=== PATIENT | male | born 1975 | race Caucasian/White ===

== ENCOUNTER 2020-01-19 01:27 | Emergency (ER) | payer MEDICAID, SELFPAY ==
[2020-01-19 01:36] VITALS: BP 173/129; PULSE 112; RESP 18; TEMP 36.6; O2SAT 98; BMI 22.4
--- NOTE | 2020-01-19 01:45 | CT_ITS ---
PROCEDURE: CT HEAD/BRAIN WO CON CLINICAL INDICATION: Seizures Headache with seizure activity COMPARISON: No exams were available for comparison TECHNIQUE: Axial images obtained. All CT scans at the facility use one or more dose reduction, viz: automated exposure control, ma/kV adjustment per patient size (including targeted exams where dose is matched to indication, i.e. head), or iterative reconstruction technique. FINDINGS: No midline shift, mass effect, intracranial hemorrhage, hydrocephalus, or extra-axial fluid collection is evident. The calvarium has an unremarkable appearance. No mastoid effusion. No sinus air-fluid level. IMPRESSION: No acute intracranial finding Dictated by: Brenton Ramirez MD 01/19/2020 06:19 Electronically signed by Brenton Ramirez MD in [place] 01/19/2020 06:19
[2020-01-19 01:47] VITALS: BP 142/98
[2020-01-19 01:51] LABS: Microscopic, Urine URINE MICROSCOPIC (MICROSCOPIC)
[2020-01-19 01:53] VITALS: BP 138/99; PULSE 102; RESP 16; O2SAT 100
[2020-01-19 01:54] LABS: Appearance,Urine CLEAR (Clear); Bilirubin,Urine Negative (Negative); Blood, Urine Negative (Negative); Color,Urine YELLOW (Yellow); Glucose,Urine (UA) Negative (Negative); Ketones,Urine Negative (Negative); Leukocyte Esterase,Urine Negative (Negative); Nitrate,Urine Negative (Negative); Protein,Urine Negative (Negative); Specific Gravity, Urine <= 1.005 (1.005-1.030); Urobilinogen,Urine 0.2 EU/dl (0.2)
[2020-01-19 01:57] LABS: Basophils # 0.1 K/mm3 (0-0.2); Eosinophils # 0.4 K/mm3 (0.0-0.4); Eosinophils % 3.3 % (0.1-12.0); Hematocrit 47.6 % (42.0-52.0); Hemoglobin 15.6 g/dL (14.1-18.0); Lymphocytes # 3.6 K/mm3 (0.7-4.5); Lymphocytes % 29.7 % (10-50); Mean Corpuscular HGB Conc 32.7 g/dL (31.8-35.4); Mean Corpuscular Hemoglobin 31.6 pg (27.0-31.2); Mean Corpuscular Volume 96.8 fl (80-94); Mean Platelet Volume 8.1 fl (7.4-10.4); Monocytes # 0.9 K/mm3 (0.1-1.0); Monocytes % 7.6 % (1.7-9.3); Neutrophils % 58.3 % (37.0-80.0); Platelet Count 292 K/mm3 (142-424); Red Blood Count 4.92 M/mm3 (4.60-6.20); Red Cell Distribution Width 12.3 % (11.5-17.5)
[2020-01-19 02:02] LABS: Alanine Aminotransferase 30 U/L (12-78); Albumin Level 4.4 g/dl (3.5-5.0); Albumin/Globulin Ratio 1.2 (1.1-1.8); Alkaline Phosphatase 138 U/L (38-126); Anion Gap 7.9 mEq/L (5-15); Aspartate Amino Transferase 32 U/L (17-59); Bilirubin,Total 0.2 mg/dl (0.2-1.3); Blood Urea Nitrogen 11 mg/dl (9-20); Calcium 9.5 mg/dl (8.4-10.2); Carbon Dioxide 30 mmol/L (22.0-30.0); Chloride 103 mmol/L (98-107); Creatinine Clearance Estimated 119 mL/min (50-200); Estimated Glomerular Filt Rate 92 ml/min (>60); GFR (African American) 111 ML/MIN (>60); Globulin 3.7 g/dL (1.3-3.2); Glucose 112 mg/dl (74-100); Potassium 3.9 mmoL/L (3.5-5.1); Sodium 137 mmol/L (136-145); Total Protein,Serum 8.1 g/dl (6.3-8.2)
[2020-01-19 02:07] LABS: C-Reactive Protein 50.1 mg/L (0-4)
[2020-01-19 02:11] LABS: Barbiturates Screen,Urine Negative ng/ml (<200)
[2020-01-19 02:12] LABS: Benzodiazepines Screen,Urine Negative ng/ml (<200)
[2020-01-19 02:14] LABS: Cannabinoid Screen,Urine Positive ng/ml (<50)
[2020-01-19 02:15] LABS: Cocaine Screen,Urine Negative ng/ml (<300); Methadone Screen,Urine Negative ng/ml (<300)
[2020-01-19 02:17] LABS: Opiate Screen,Urine Negative ng/ml (<300); Phencyclidine Screen,Urine Negative ng/ml (<25)
[2020-01-19 02:20] VITALS: BP 123/82; PULSE 110; RESP 16; O2SAT 100
[2020-01-19 02:38] LABS: Bacteria,Urine Trace /lpf; WBC,Urine Occasional #/hpf (0-3)
[2020-01-19 02:53] LABS: Erythrocyte Sedimentation Rate 46 mm/hr (0-15)
--- NOTE | 2020-01-19 03:37 | HMH.EDSEIZ ---
ED Disposition Clinical Impression: Generalized seizure Disposition: Home, Self-Care Condition on Discharge: Good Instructions: DI for Seizure Disorder -- Adult Additional Instructions: call neuro this am Referrals: Trish Srinivasan APRN [Primary Care Provider] - - Critical Care Critical Care Time: No Attestation: On 01/19/20, the high probability of a clinically significant, sudden or life threatening deterioration of the following system(s) required my full and direct attention, intervention and personal management. The time I documented below is in addition to time spent performing reported procedures but includes the following listed in this critical care notation. Medical Decision Making - Medical Records Medical records reviewed: Yes: I reviewed the patient's medical records. - Med Inquiry Pt receiving controlled substance: No Vital Signs: 01/19/20 01:36 01/19/20 01:47 01/19/20 01:53 Temperature 97.8 F Temperature Source Oral Pulse Rate [Right] 112 H 102 H Respiratory Rate 18 16 Blood Pressure [Right Arm] 173/129 H 142/98 H 138/99 H Blood Pressure Mean [Right Arm] 143 112 112 Blood Pressure Source [Right Arm] Automatic Cuff Manual Cuff/ Auscultation Blood Pressure Position [Right Arm] Supine Supine Supine 02 Sat by Pulse Oximetry 98 100 Oxygen Delivery Method Room Air Room Air 01/19/20 02:20 Temperature Temperature Source Pulse Rate [Right] 110 H Respiratory Rate 16 Blood Pressure [Right Arm] 123/82 Blood Pressure Mean [Right Arm] 95 Blood Pressure Source [Right Arm] Blood Pressure Position [Right Arm] 02 Sat by Pulse Oximetry 100 Oxygen Delivery Method Room Air - Lab Data Lab results reviewed: Yes: I reviewed the patient's lab results. Lab Results 01/19/20 01:33: Urine Color Yellow, Urine Appearance Clear, Urine pH 6.0, Ur Specific [place] <= 1.005, Urine Protein Negative, Urine Glucose (UA) Negative, Urine Ketones Negative, Urine Blood Negative, Urine Nitrate Negative, Urine Bilirubin Negative, Urine Urobilinogen 0.2, Ur Leukocyte Esterase Negative, Urine WBC Occasional, Urine Bacteria Trace 01/19/20 01:33: Urine Opiates Screen Negative, Urine Methadone Screen Negative, Ur Barbituates Screen Negative, Ur Phencyclidine Scrn Negative, Ur Amphetamines Screen Tv Host, U Benzodiazepines Scrn Negative, Urine Cocaine Screen Negative, U Marijuana (THC) Screen Positive H 01/19/20 01:43: WBC 12.0 H, RBC 4.92, Hgb 15.6, Hct 47.6, MCV 96.8 H, MCH 31.6 H, MCHC 32.7, RDW 12.3, Plt Count 292, MPV 8.1, Neut % (Auto) 58.3, Lymph % (Auto) 29.7, [place] % (Auto) 7.6, Eos % (Auto) 3.3, Baso % (Auto) 1.0, Neut # (Auto) 7.0, Lymph # (Auto) 3.6, [place] # (Auto) 0.9, Eos # (Auto) 0.4, Baso # (Auto) 0.1, ESR 46 H 01/19/20 01:43: Sodium 137, Potassium 3.9, Chloride 103, Carbon Dioxide 30, Anion Gap 7.9, BUN 11, Creatinine 0.90, Estimated Creat Clear 119, Estimated GFR 92, Est GFR ( Amer) 111, Glucose 112 H, Calcium 9.5, Total Bilirubin 0.2, AST 32, ALT 30, Alkaline Phosphatase 138 H, C-Reactive Protein 50.1 H, Total Protein 8.1, Albumin 4.4, Globulin 3.7 H, Albumin/Globulin Ratio 1.2 Result diagrams: 01/19/20 01:43 01/19/20 01:43 Orders (Tests/Meds): ED MEDICATIONS Generic Name Dose Route Start Last Admin Trade Name Freq PRN Reason Stop Dose Admin Sodium Chloride 1,000 mls @ 999 mls/hr 01/19/20 01:45 01/19/20 01:56 Sod Chlor 0.9% 1000ml Bag IV 01/19/20 02:45 999 mls/hr .Q1H1M TONEY Administration Discontinued Medications Generic Name Dose Route Start Last Admin Trade Name Freq PRN Reason Stop Dose Admin Clonidine HCl 0.1 mg 01/19/20 01:45 01/19/20 01:54 Clonidine 0.1mg Tablet PO 01/19/20 01:46 Not Given ONCE ONE ORDERS Category Date Time Status CT head/brain wo con Stat Cat Scan 01/19/20 01:45 Taken - CT Data CT Scan: Head Time Received: 03:[address] Reviewed: Yes: I have viewed the radiologist's interpretation Preliminary Findings: Normal/NA
[2020-01-19 03:59] VITALS: BP 137/89; PULSE 88; RESP 16; TEMP 36.6; O2SAT 98
[2020-01-21 17:40] LABS: Lamotrigine (Lamictal) None Detected ug/mL (2.0-20.0)
[2020-01-21 22:32] LABS: Amphetamine Positive (.); Amphetamines Positive (.); Methamphetamine Positive (.)
[2020-01-22 08:14] LABS: Amphetamine (GC/MS) 1150 ng/mL (Cutoff=500); Methamphetamine (GC/MS) 7860 ng/mL (Cutoff=500)
== END 2020-01-19 04:01 | disposition home or self-care (01) ==
PROVIDERS: Emergency Provider Emergency Medicine; PCP Nurse Practitioner
DX: G40.909 Epilepsy, unspecified, not intractable, without status epilepticus (principal)
CPT/HCPCS: 70450; 80053; 80168; 80305; 80324; 81001; 85025; 85651; 86140; 96365; 99284

== ENCOUNTER 2020-01-19 14:03 | Emergency (ER) | payer MEDICAID, SELFPAY ==
[2020-01-19 14:03] VITALS: BP 123/85; PULSE 87; RESP 20; TEMP 36.7; O2SAT 98; BMI 21.8
[2020-01-19 14:33] VITALS: BP 143/98; PULSE 68; RESP 20; O2SAT 98
--- NOTE | 2020-01-19 14:52 | HMH.EDGENADL ---
ED Disposition Clinical Impression: Epileptic seizure, Noncompliance by refusing intervention or support Disposition: Home, Self-Care Condition on Discharge: Good Instructions: DI for Seizure (Not Epilepsy/Seizure Disorder), DI for Seizure Disorder -- Adult, DI for Seizure Disorder -- Child Referrals: Provider,Referral, [Primary Care Provider] - - Critical Care Critical Care Time: No Attestation: On 01/19/20, the high probability of a clinically significant, sudden or life threatening deterioration of the following system(s) required my full and direct attention, intervention and personal management. The time I documented below is in addition to time spent performing reported procedures but includes the following listed in this critical care notation. Medical Decision Making - Medical Records Medical records reviewed: Yes: I reviewed the patient's medical records. - Med Inquiry Pt receiving controlled substance: No Vital Signs: 01/19/20 14:03 Temperature 98.1 F Temperature Source Oral Pulse Rate [Right] 87 Respiratory Rate 20 Blood Pressure [Right Arm] 123/85 Blood Pressure Mean [Right Arm] 97 02 Sat by Pulse Oximetry 98 - Lab Data Lab results reviewed: Yes: I reviewed the patient's lab results. Orders (Tests/Meds): ORDERS Category Date Time Status Upper Respiratory Panel, PCR Stat Lab 01/19/20 14:24 Ordered General Adult HPI - General Chief complaint: Seizure Stated complaint: Seizures Time Seen by Provider: 01/19/20 14:53 Mode of Arrival: EMS Source of Information: Patient Limitations: No Limitations Description of Symptoms (Recalled from ER Triage Doc. by RN): Seen here earlier today and dx with seizures and given medication and is back today for having another unwitnessed seizure. EMS did not witness a seizure and states he is not postictal. Denies any pain but c/o weakness. - History of Present Illness HPI narrative: 44-year-old male presents the ED with may be a seizure that was unwitnessed at home. Patient was just recently seen here in the ED earlier today diagnosed with an unwitnessed seizure and restarted back on his medication that he should have been taking but he is noncompliant with. Presently patient has no formal complaints he does state that he has minor has minor fatigue. I really told him that there is not much else to do except get the medication filled and start taking it however he decided not to get his prescription filled yet. Otherwise patient has no evidence of any trauma. Patient did not have a bowel or bladder incontinence during this unwitnessed possible seizure. Patient states that he does not have any recent shortness of breath, cough, or any other infectious type symptoms. - Related Data Home Medications Medication Instructions Recorded Confirmed hydrOXYzine HCL [Hydroxyzine HCl] 25 mg PO DAILY PRN 01/19/20 01/19/20 lamoTRIgine [Lamotrigine] 25 mg PO BID 01/19/20 01/19/20 Allergies Allergy/AdvReac Type Severity Reaction Status Date / Time No Known Allergies Allergy Unverified 09/02/17 15:33 [facility] History - Hepatitis A Screen Drug use history?: No High risk sexual behaviors?: No History of sexually transmitted infection?: No Currently employed?: No Childcare worker?: No Do you have indoor plumbing?: Yes Do you have electricity?: Yes Attestation statement:: This patient has been screened for Hepatitis A risk factors. I have reviewed the patient's past medical history: Yes Medical History: Denies:: Diabetes Mellitus Type 1, Diabetes Mellitus Type 2 - Social History Smoking Status: Current every day smoker Tobacco Type: cigarettes # Packs/Day (cigarettes): 1 Alcohol Intake: never Substance Use Type: marijuana Occupational Status: unemployed ROS Obtained: Yes All systems reviewed & no additional complaints - Constitutional Constitutional: Reports system reviewed and no additional complaints, except as docu -
[2020-01-19 15:06] VITALS: BP 158/90; PULSE 85; RESP 20; TEMP 36.8; O2SAT 98
[2020-01-19 16:03] LABS: Adenovirus,PCR Not Detected (NotDetected); Bordetella Pertussis Not Detected (NotDetected); Chlamydophila Pneumoniae, PCR Not Detected (NotDetected); Coronavirus 229E Not Detected (NotDetected); Coronavirus NL63 Not Detected (NotDetected); Coronavirus OC43 Not Detected (NotDetected); Coronovirus HKU1,PCR Not Detected (NotDetected); Human Metapneumovirus Not Detected (NotDetected); Influenza A, PCR Not Detected (NotDetected); Influenza AH1, 2009 Not Detected (NotDetected); Influenza AH1, PCR Not Detected (NotDetected); Influenza AH3,PCR Not Detected (NotDetected); Influenza B, PCR Not Detected (NotDetected); Mycoplasma Pneumoniae, PCR Not Detected (NotDetected); Parainfluenza 1, PCR Not Detected (NotDetected); Parainfluenza 2, PCR Not Detected (NotDetected); Parainfluenza 3, PCR Not Detected (NotDetected); Parainfluenza 4, PCR Not Detected (NotDetected); Respiratory Syncytial Virus Not Detected (NotDetected); Rhinovirus/Enterovirus Not Detected (NotDetected)
== END 2020-01-19 15:08 | disposition home or self-care (01) ==
PROVIDERS: Emergency Provider Family Medicine
DX: G40.909 Epilepsy, unspecified, not intractable, without status epilepticus (principal); Z79.899 Other long term (current) drug therapy
CPT/HCPCS: 87486; 87581; 87633; 87798; 99282

== ENCOUNTER 2020-03-12 13:28 | Emergency (ER) | payer MEDICAID, SELFPAY ==
[2020-03-12] VITALS (9 sets, daily range): BP systolic 129–206; BP diastolic 87–126; PULSE 79–119; RESP 18–26; TEMP 36.7; O2SAT 97–100; BMI 22.4
--- NOTE | 2020-03-12 13:35 | PC.NURSE ---
Medic at bedside, pt undressed and in a gown, personal belonging put out of patient reach.
--- NOTE | 2020-03-12 13:56 | ECG_ITS ---
APPROVED REPORT Exam: Resting ECG HR:91 bpm ECG Measurements Heart Rate 91 AXES CA 136 P 79 QRSd 92 QRS 69 QT 360 T 60 QTc 442 <Conclusion> Normal sinus rhythm Normal ECG Electronically signed by : Elías Dubois, 03/13/2020 11:44:56
--- NOTE | 2020-03-12 14:00 | HMH.EDGENADL ---
ED Disposition Clinical Impression: Suicide attempt, Suicidal ideation, Mood disorder Disposition: Xfer Psychiatric Hosp Condition on Discharge: Fair Referrals: Provider,Referral, [Referring] - - Critical Care Critical Care Time: No Attestation: On 03/12/20, the high probability of a clinically significant, sudden or life threatening deterioration of the following system(s) required my full and direct attention, intervention and personal management. The time I documented below is in addition to time spent performing reported procedures but includes the following listed in this critical care notation. Medical Decision Making - Medical Records Medical records reviewed: Yes: I reviewed the patient's medical records. - Med Inquiry Pt receiving controlled substance: No Vital Signs: 03/12/20 13:28 03/12/20 14:07 03/12/20 14:54 Temperature 98.0 F Temperature Source Oral Pulse Rate [Right Radial] 96 H Pulse Rate [Right] 119 H 102 H Respiratory Rate 26 H 20 20 Blood Pressure [Right Arm] 206/126 H 152/105 H 134/103 H Blood Pressure Mean [Right Arm] 152 120 113 Blood Pressure Source [Right Arm] Automatic Cuff Blood Pressure Position [Right Arm] Sitting Sitting 02 Sat by Pulse Oximetry 100 97 100 Oxygen Delivery Method Room Air Room Air 03/12/20 15:21 03/12/20 15:42 03/12/20 16:09 Temperature Temperature Source Pulse Rate [Right Radial] Pulse Rate [Right] 83 90 79 Respiratory Rate 18 18 Blood Pressure [Right Arm] 139/94 H 129/93 H 154/110 H Blood Pressure Mean [Right Arm] 109 105 124 Blood Pressure Source [Right Arm] Automatic Cuff Automatic Cuff Automatic Cuff Blood Pressure Position [Right Arm] Sitting Sitting Sitting 02 Sat by Pulse Oximetry 98 100 97 Oxygen Delivery Method Room Air 03/12/20 17:17 03/12/20 18:03 Temperature Temperature Source Pulse Rate [Right Radial] Pulse Rate [Right] 80 80 Respiratory Rate 20 Blood Pressure [Right Arm] 153/100 H 131/89 Blood Pressure Mean [Right Arm] 117 103 Blood Pressure Source [Right Arm] Automatic Cuff Blood Pressure Position [Right Arm] Supine 02 Sat by Pulse Oximetry 100 99 Oxygen Delivery Method Room Air - Lab Data Lab results reviewed: Yes: I reviewed the patient's lab results. Lab Results 03/12/20 13:43: WBC 8.8, RBC 4.66, Hgb 15.4, Hct 45.3, MCV 97.2 H, MCH 33.0 H, MCHC 33.9, RDW 13.1, Plt Count 285, MPV 7.6, Neut % (Auto) 60.1, Lymph % (Auto) 32.2, Scott % (Auto) 5.3, Eos % (Auto) 1.7, Baso % (Auto) 0.6, Neut # (Auto) 5.3, Lymph # (Auto) 2.9, Scott # (Auto) 0.5, Eos # (Auto) 0.2, Baso # (Auto) 0.1 03/12/20 13:43: Sodium 140, Potassium 3.2 L, Chloride 108 H, Carbon Dioxide 22, Anion Gap 13.2, BUN 6 L, Creatinine 0.90, Estimated Creat Clear 119, Estimated GFR 92, Est GFR ( Amer) 111, Glucose 140 H, Calcium 9.4, Total Bilirubin 0.4, AST 33, ALT 34, Alkaline Phosphatase 120, Total Protein 7.7, Albumin 4.2, Globulin 3.5 H, Albumin/Globulin Ratio 1.2, Salicylates < 1.0 L, Acetaminophen < 10 L 03/12/20 13:43: Plasma/Serum Alcohol < 10 03/12/20 14:55: Chlamy pneumoniae PCR Not detected, Adenovirus (PCR) Not detected, B. pertussis DNA (PCR) Not detected, Coronavirus OC43 (PCR) Not detected, Coronavirus HKU1 (PCR) Not detected, Coronavirus 229E (PCR) Not detected, COVID-19 PCR Not detected, Coronavirus NL63 (PCR) Not detected, Human Metapneumovir PCR Not detected, Influenza A (H1) PCR Not detected, Influ A (H1N1/09) PCR Not detected, Influenza A (H3) PCR Not detected, Influenza Type A (PCR) Not detected, Influenza Type B (PCR) Not detected, M. pneumoniae (PCR) Not detected, Parainfluenza 1 (PCR) Not detected, Parainfluenza 2 (PCR) Not detected, Parainfluenza 3 (PCR) Not detected, Parainfluenza 4 (PCR) Not detected, RSV (PCR) Not detected, Entero/Rhino (PCR) Not detected 03/12/20 14:56: Urine Color Yellow, Urine Appearance Clear, Urine pH 5.5, Ur Specific [place] <= 1.005, Urine Protein Negative, Urine Glucose (UA) Negative, Urine K
[2020-03-12 14:05] LABS: Chloride 108 mmol/L (98-107)
[2020-03-12 14:06] LABS: Potassium 3.2 mmoL/L (3.5-5.1); Sodium 140 mmol/L (136-145)
[2020-03-12 14:08] LABS: Alanine Aminotransferase 34 U/L (12-78); Alkaline Phosphatase 120 U/L (38-126); Anion Gap 13.2 mEq/L (5-15); Aspartate Amino Transferase 33 U/L (17-59); Bilirubin,Total 0.4 mg/dl (0.2-1.3); Blood Urea Nitrogen 6 mg/dl (9-20); Calcium 9.4 mg/dl (8.4-10.2); Carbon Dioxide 22 mmol/L (22.0-30.0); Creatinine Clearance Estimated 119 mL/min (50-200); Estimated Glomerular Filt Rate 92 ml/min (>60); GFR (African American) 111 ML/MIN (>60); Glucose 140 mg/dl (74-100)
[2020-03-12 14:09] LABS: Albumin Level 4.2 g/dl (3.5-5.0); Albumin/Globulin Ratio 1.2 (1.1-1.8); Globulin 3.5 g/dL (1.3-3.2); Total Protein,Serum 7.7 g/dl (6.3-8.2)
--- NOTE | 2020-03-12 14:09 | PC.NURSE ---
pt has one on one sitting with him
[2020-03-12 14:11] LABS: Acetaminophen < 10 ug/ml (10-30); Ethyl Alcohol < 10 mg/dl (0-10); Salicylate < 1.0 mg/dL (2.0-20.0)
[2020-03-12 14:14] LABS: Basophils # 0.1 K/mm3 (0-0.2); Basophils % 0.6 % (0.1-2.0); Eosinophils # 0.2 K/mm3 (0.0-0.4); Eosinophils % 1.7 % (0.1-12.0); Hematocrit 45.3 % (42.0-52.0); Hemoglobin 15.4 g/dL (14.1-18.0); Lymphocytes # 2.9 K/mm3 (0.7-4.5); Lymphocytes % 32.2 % (10-50); Mean Corpuscular HGB Conc 33.9 g/dL (31.8-35.4); Mean Corpuscular Volume 97.2 fl (80-94); Mean Platelet Volume 7.6 fl (7.4-10.4); Monocytes # 0.5 K/mm3 (0.1-1.0); Monocytes % 5.3 % (1.7-9.3); Neutrophils # 5.3 K/mm3 (1.8-7.8); Neutrophils % 60.1 % (37.0-80.0); Platelet Count 285 K/mm3 (142-424); Red Blood Count 4.66 M/mm3 (4.60-6.20); Red Cell Distribution Width 13.1 % (11.5-17.5); White Blood Count 8.8 K/mm3 (4.8-10.8)
--- NOTE | 2020-03-12 14:16 | PC.NURSE ---
Tech sitting at bedside with patient. Warm blanket given.
--- NOTE | 2020-03-12 14:24 | PC.NURSE ---
Pt still unable to urinate
--- NOTE | 2020-03-12 14:47 | PC.NURSE ---
Called lab to notify of rapid COVID-19 swab ordered
--- NOTE | 2020-03-12 14:51 | PC.NURSE ---
Pt tried to give urine sample and was unsuccessful, pt given some water to help urinate
[2020-03-12 15:02] LABS: Microscopic, Urine URINE MICROSCOPIC (MICROSCOPIC)
[2020-03-12 15:04] LABS: Appearance,Urine CLEAR (Clear); Bilirubin,Urine Negative (Negative); Blood, Urine Negative (Negative); Color,Urine YELLOW (Yellow); Glucose,Urine (UA) Negative (Negative); Ketones,Urine Negative (Negative); Leukocyte Esterase,Urine TRACE (Negative); Nitrate,Urine Negative (Negative); PH,Urine 5.5 (5.0-8.5); Protein,Urine Negative (Negative); Specific Gravity, Urine <= 1.005 (1.005-1.030); Urobilinogen,Urine 0.2 EU/dl (0.2)
[2020-03-12 15:06] LABS: Adenovirus,PCR Not Detected (NotDetected); Bordetella Pertussis Not Detected (NotDetected); Chlamydophila Pneumoniae, PCR Not Detected (NotDetected); Coronavirus 19, PCR Not Detected (NotDetected); Coronavirus 229E Not Detected (NotDetected); Coronavirus NL63 Not Detected (NotDetected); Coronavirus OC43 Not Detected (NotDetected); Coronovirus HKU1,PCR Not Detected (NotDetected); Human Metapneumovirus Not Detected (NotDetected); Influenza A, PCR Not Detected (NotDetected); Influenza AH1, 2009 Not Detected (NotDetected); Influenza AH1, PCR Not Detected (NotDetected); Influenza AH3,PCR Not Detected (NotDetected); Influenza B, PCR Not Detected (NotDetected); Mycoplasma Pneumoniae, PCR Not Detected (NotDected); Parainfluenza 1, PCR Not Detected (NotDetected); Parainfluenza 2, PCR Not Detected (NotDetected); Parainfluenza 3, PCR Not Detected (NotDetected); Parainfluenza 4, PCR Not Detected (NotDetected); Respiratory Syncytial Virus Not Detected (NotDetected); Rhinovirus/Enterovirus Not Detected (NotDetected)
[2020-03-12 15:17] LABS: Barbiturates Screen,Urine Negative ng/ml (<200)
[2020-03-12 15:18] LABS: Amphetamine/Metha Screen,Urine Negative ng/ml (<1000); Benzodiazepines Screen,Urine Negative ng/ml (<200)
--- NOTE | 2020-03-12 15:18 | PC.NURSE ---
placed call to [facility] to see if COVID test needed prior to pt transfer to their facility. They prefer we do the test.
[2020-03-12 15:19] LABS: Cannabinoid Screen,Urine Positive ng/ml (<50); Cocaine Screen,Urine Negative ng/ml (<300)
--- NOTE | 2020-03-12 15:19 | PC.NURSE ---
Called [facility] to inform them we needed a hold on suicidal pt. They advised if pt is from [place] then [facility] needs to handle those arrangements. Awaiting call from [facility].
[2020-03-12 15:20] LABS: Methadone Screen,Urine Negative ng/ml (<300)
[2020-03-12 15:21] LABS: Opiate Screen,Urine Negative ng/ml (<300); Phencyclidine Screen,Urine Negative ng/ml (<25)
[2020-03-12 15:24] LABS: RBC,Urine Occasional #/hpf (0-3); Squamous Epithelial Cell,Urine Occasional #/hpf (0-5)
--- NOTE | 2020-03-12 15:50 | PC.NURSE ---
[facility] dispatch called , gave her the information , she is going to call an officer and give him the information.
--- NOTE | 2020-03-12 16:01 | PC.NURSE ---
[facility] dispatch returned call , their officer advised he could not do anything since the pt willingly admitted himself to our hospital.
--- NOTE | 2020-03-12 16:17 | PC.NURSE ---
staff continues to be at bedside
--- NOTE | 2020-03-12 16:23 | PC.NURSE ---
[employer] STAFF BROUGHT PT A SANDWICH AND CHIPS PER OUR REQUEST BECAUSE PT STATED THAT HE HAD NOT EATEN IN 2 DAYS.
--- NOTE | 2020-03-12 16:43 | PC.NURSE ---
Officer Shaw here to advise that we needed to have the paperwork for involuntary filled out and faxed to Judge Mitchell.
--- NOTE | 2020-03-12 17:15 | PC.NURSE ---
Pt resting in bed at that time, tech at bedside, suicide precautions remain
--- NOTE | 2020-03-12 18:05 | PC.NURSE ---
due to concerns from [facility] that pt may not stay, they wanted him to have a 72 hr hold. Paperwork is being faxed to the [employer] for approval.
--- NOTE | 2020-03-12 18:12 | PC.NURSE ---
time delay on issues with the proper signatures and having a notary sign the paperwork.
--- NOTE | 2020-03-12 18:13 | PC.NURSE ---
pts sisters both have called , pt advised and he told me to tell them he would call them.
--- NOTE | 2020-03-12 18:41 | PC.NURSE ---
Report given to Ruba at [facility]. Pt leaving with officer Emiliano.
== END 2020-03-12 18:58 ==
PROVIDERS: Emergency Provider Emergency Medicine; PCP Nurse Practitioner
DX: T14.91XA Suicide attempt, initial encounter (principal); F39 Unspecified mood [affective] disorder; F17.210 Nicotine dependence, cigarettes, uncomplicated; F12.10 Cannabis abuse, uncomplicated
CPT/HCPCS: 80053; 80305; 80329; 81001; 85025; 87581; 87633; 87798; 93005; 99284

== ENCOUNTER 2020-06-10 10:32 | Observation (INO) | payer MEDICAID, SELFPAY ==
[2020-06-10 10:38] VITALS: BP 155/95; PULSE 103; RESP 22; TEMP 37.1; O2SAT 98; BMI 24.3
--- NOTE | 2020-06-10 10:39 | HMH.EDGENADL ---
ED Disposition Clinical Impression: Altered mental status Qualifiers: Altered mental status type: disorientation Qualified Code(s): R41.0 - Disorientation, unspecified Rhabdomyolysis Qualifiers: Rhabdomyolysis type: non-traumatic Qualified Code(s): M62.82 - Rhabdomyolysis Disposition: Admitted As Inpatient Condition on Discharge: Fair Referrals: Provider,Referral, [Primary Care Provider] - Time of Disposition: 12:40 - Critical Care Critical Care Time: No Attestation: On , the high probability of a clinically significant, sudden or life threatening deterioration of the following system(s) required my full and direct attention, intervention and personal management. The time I documented below is in addition to time spent performing reported procedures but includes the following listed in this critical care notation. Medical Decision Making - Medical Records Medical records reviewed: Yes: I reviewed the patient's medical records. MR Comment: 44-year-old male presents the emergency department with altered mental status. He was found down behind the building. He arrives to the ED hemodynamically stable, with reassuring vitals, but is altered. He is alert but appears to be having hallucinations. He was found with synthetic marijuana. Given this, will get labs, CT head, reassess. On reassessment, patient remains hemodynamically stable. GCS 14, taken his airway. Labs showing leukocytosis, no fever, no obvious signs of infection at this time. He also has increased CK and creatinine, consistent with rhabdomyolysis and has been given 2 L of fluid here. Given his overall status, spoke with Dr. Rubio and he will be admitted for further evaluation and treatment. Lamotrigine and alcohol levels are still pending at this time. - Med Inquiry Pt receiving controlled substance: No Vital Signs: 06/10/20 10:38 06/10/20 10:54 06/10/20 11:45 Temperature 98.8 F Temperature Source Oral Pulse Rate [Left Carotid] 103 H 110 H 97 H Respiratory Rate 22 22 16 Blood Pressure [Right Arm] 155/95 H 155/92 H 136/86 Blood Pressure Mean [Right Arm] 115 113 102 Blood Pressure Source [Right Arm] Automatic Cuff Blood Pressure Position [Right Arm] Sitting Supine Supine 02 Sat by Pulse Oximetry 98 96 99 Oxygen Delivery Method Room Air Room Air Room Air - Lab Data Lab Results 06/10/20 10:36: WBC 16.4 H, RBC 4.14 L, Hgb 13.8 L, Hct 38.6 L, MCV 93.1, MCH 33.3 H, MCHC 35.7 H, RDW 12.6, Plt Count 323, MPV 8.2, Neut % (Auto) 80.0, Lymph % (Auto) 12.4, [place]minn % (Auto) 7.0, Eos % (Auto) 0.4, Baso % (Auto) 0.2, Neut # (Auto) 13.2 H, Lymph # (Auto) 2.0, [place]minn # (Auto) 1.2 H, Eos # (Auto) 0.1, Baso # (Auto) 0.0, Total Counted 100, Neutrophils % (Manual) 76, Lymphocytes % (Manual) 12, Monocytes % (Manual) 10 H, Metamyelocytes % 1.0, Blast Cells % 1.0, Platelet Estimate Normal, RBC Morphology Normal 06/10/20 10:36: Sodium 142, Potassium 3.6, Chloride 109 H, Carbon Dioxide 19 L, Anion Gap 17.6 H, BUN 21 H, Creatinine 2.00 H, Estimated Creat Clear 52, Estimated GFR 37 L, Est GFR ( Amer) 44 L, Glucose 70 L, Calcium 9.8, Total Bilirubin 0.7, AST 76 H, ALT 32, Alkaline Phosphatase 145 H, Total Creatine Kinase 4955 H*, Total Protein 7.1, Albumin 4.1, Globulin 3.0, Albumin/Globulin Ratio 1.4, Salicylates < 1.0 L, Acetaminophen < 10 L 06/10/20 10:36: SARS-CoV-2 IgG Ab (Rapid) Negative, SARS-CoV-2 IgM Ab (Rapid) Negative 06/10/20 10:47: VBG pH 7.54 H, VBG pCO2 21.5 L, VBG pO2 160.0 H, VBG HCO3 18.1 L, VBG Total CO2 18.7 L, VBG O2 Saturation 98.9 H, VBG Base Excess -4.4 L 06/10/20 11:40: Urine Color Dk yellow, Urine Appearance Clear, Urine pH 6.0, Ur Specific [place] >= 1.030, Urine Protein Trace, Urine Glucose (UA) Negative, Urine Ketones 1+, Urine Blood Negative, Urine Nitrate Negative, Urine Bilirubin Negative, Urine Urobilinogen 0.2, Ur Leukocyte Esterase Negative, Urine RBC 3-5, Urine WBC 10-20, Ur Squamous Epith Cells Occasional, Urine Bacteria 2+, Hyaline C
--- NOTE | 2020-06-10 10:47 | CT_ITS ---
PROCEDURE: CT HEAD/BRAIN WO CON CLINICAL INDICATION: altered Altered mental status, altered level of consciousness, confusion, disorientation COMPARISON: CT CT HEAD/BRAIN WO CON from 01/19/2020 TECHNIQUE: Helical images obtained. All CT scans at the facility use one or more dose reduction, viz: automated exposure control, ma/kV adjustment per patient size (including targeted exams where dose is matched to indication, i.e. head), or iterative reconstruction technique. FINDINGS: No midline shift, mass effect, intracranial hemorrhage, or hydrocephalus. No evidence of calvarial fracture or other significant anomaly. No mastoid effusion or sinus air-fluid level. Patient is rotated in the CT gantry and helical images were obtained due to patient's inability to cooperate IMPRESSION: No acute intracranial finding Dictated by: Brenton Ramirez MD 06/10/2020 11:46 Brenton Ramirez MD in [place] 06/10/2020 11:46
[2020-06-10 10:54] VITALS: BP 155/92; PULSE 110; RESP 22; O2SAT 96
[2020-06-10 10:54] LABS: Basophils % 0.2 % (0.1-2.0); Eosinophils # 0.1 K/mm3 (0.0-0.4); Eosinophils % 0.4 % (0.1-12.0); Hematocrit 38.6 % (42.0-52.0); Hemoglobin 13.8 g/dL (14.1-18.0); Lymphocytes % 12.4 % (10-50); Mean Corpuscular HGB Conc 35.7 g/dL (31.8-35.4); Mean Corpuscular Hemoglobin 33.3 pg (27.0-31.2); Mean Corpuscular Volume 93.1 fl (80-94); Mean Platelet Volume 8.2 fl (7.4-10.4); Monocytes # 1.2 K/mm3 (0.1-1.0); Neutrophils # 13.2 K/mm3 (1.8-7.8); Platelet Count 323 K/mm3 (142-424); Red Blood Count 4.14 M/mm3 (4.60-6.20); Red Cell Distribution Width 12.6 % (11.5-17.5); White Blood Count 16.4 K/mm3 (4.8-10.8)
[2020-06-10 10:55] LABS: Chloride 109 mmol/L (98-107); Potassium 3.6 mmoL/L (3.5-5.1); Sodium 142 mmol/L (136-145)
[2020-06-10 10:57] LABS: Alanine Aminotransferase 32 U/L (12-78); Alkaline Phosphatase 145 U/L (38-126); Aspartate Amino Transferase 76 U/L (17-59); Bilirubin,Total 0.7 mg/dl (0.2-1.3); Blood Urea Nitrogen 21 mg/dl (9-20); Carbon Dioxide 19 mmol/L (22.0-30.0); Creatinine Clearance Estimated 52 mL/min (50-200); Estimated Glomerular Filt Rate 37 ml/min (>60); GFR (African American) 44 ML/MIN (>60); MANUAL DIFFERENTIAL MANUAL DIFFERENTIAL (MANUAL DIFF)
[2020-06-10 10:58] LABS: Albumin Level 4.1 g/dl (3.5-5.0); Albumin/Globulin Ratio 1.4 (1.1-1.8); Calcium 9.8 mg/dl (8.4-10.2); Glucose 70 mg/dl (74-100); Total Protein,Serum 7.1 g/dl (6.3-8.2)
[2020-06-10 11:01] LABS: Acetaminophen < 10 ug/ml (10-30); Anion Gap 17.6 mEq/L (5-15); Salicylate < 1.0 mg/dL (2.0-20.0)
--- NOTE | 2020-06-10 11:09 | PC.NURSE ---
pt transported to ct with fifth grade teacher and manager housekeeping for precautionary measures due to pt mental state.
[2020-06-10 11:13] LABS: VBG PH 7.54 mmol/L (7.31-7.41)
[2020-06-10 11:15] LABS: VBG HCO3 18.1 mmol/L (23-30); VBG PCO2 21.5 mmol/L (35-51); VBG Total CO2 18.7 mmol/L (23-27)
[2020-06-10 11:16] LABS: VBG Base Excess -4.4 mmol/L (-2.4-2.3); VBG Oxygen Saturation 98.9 % (50-70)
[2020-06-10 11:17] LABS: Lymphocytes % 12 % (10-50); Monocytes % 10 % (2-9); Neutrophils % 76 % (42-76); Platelet Estimate Normal; RBC Morphology Normal; Total Cells Counted 100
--- NOTE | 2020-06-10 11:30 | ECG_ITS ---
APPROVED REPORT Exam: Resting ECG HR:94 bpm ECG Measurements Heart Rate 94 AXES ID 170 P 71 QRSd 92 QRS 72 QT 386 T 68 QTc 482 <Conclusion> Normal sinus rhythm Prolonged QT Abnormal ECG Electronically signed by : Alvaro Presley, 06/13/2020 20:22:41
[2020-06-10 11:41] LABS: Creatine Kinase 4955 U/L (55-170)
[2020-06-10 11:45] VITALS: BP 136/86; PULSE 97; RESP 16; O2SAT 99
[2020-06-10 11:45] LABS: Microscopic, Urine URINE MICROSCOPIC (MICROSCOPIC)
[2020-06-10 11:47] LABS: Appearance,Urine CLEAR (Clear); Blood, Urine Negative (Negative); Color,Urine DK YELLOW (Yellow); Glucose,Urine (UA) Negative (Negative); Ketones,Urine 1+ (Negative); Leukocyte Esterase,Urine Negative (Negative); Nitrate,Urine Negative (Negative); Protein,Urine TRACE (Negative); Specific Gravity, Urine >= 1.030 (1.005-1.030); Urobilinogen,Urine 0.2 EU/dl (0.2)
[2020-06-10 11:53] LABS: Bilirubin,Urine Negative (Negative)
[2020-06-10 12:03] LABS: Bacteria,Urine 2+ /lpf; Squamous Epithelial Cell,Urine Occasional #/hpf (0-5)
[2020-06-10 12:04] LABS: Barbiturates Screen,Urine Negative ng/ml (<200); Benzodiazepines Screen,Urine Negative ng/ml (<200); Hyaline Casts,Urine Occasional #/lpf (0)
[2020-06-10 12:05] LABS: Cannabinoid Screen,Urine Negative ng/ml (<50)
[2020-06-10 12:06] LABS: Cocaine Screen,Urine Negative ng/ml (<300); Methadone Screen,Urine Negative ng/ml (<300)
[2020-06-10 12:07] LABS: Opiate Screen,Urine Negative ng/ml (<300); Phencyclidine Screen,Urine Negative ng/ml (<25)
[2020-06-10 12:07] LABS: Coronavirus 19 IgG Antibody Negative (Negative); Coronavirus 19 IgM Antibody Negative (Negative)
[2020-06-10 13:27] LABS: Ethyl Alcohol < 10 mg/dl (0-10)
[2020-06-10 13:45] VITALS: BP 123/74; PULSE 98; RESP 18; TEMP 36.6; O2SAT 98
--- NOTE | 2020-06-10 13:59 | HMH.PHAVTE ---
[facility] Pharmacy VTE Monitoring - Patient Demographics Admission date: 06/10/20 Report Date: 06/10/20 Time: 13:59 Allergies/Adverse Reactions: Patient Allergies No Known Allergies Allergy (Verified 06/10/20 11:57) Height: 1.78 m Weight: 77.111 kg Patient Problems: Current Active Problems Altered mental status (Acute) Rhabdomyolysis (Acute) - VTE Risk Labs: VTE Related Lab Results Hgb 13.8 g/dL (14.1-18.0) L 06/10/20 10:36 Hct 38.6 % (42.0-52.0) L 06/10/20 10:36 Plt Count 323 K/mm3 (142-424) 06/10/20 10:36 BUN 21 mg/dl (9-20) H 06/10/20 10:36 Creatinine 2.00 mg/dl (0.66-1.25) H 06/10/20 10:36 Estimated Creat Clear 52 mL/min (50-200) 06/10/20 10:36 - Prophylaxis VTE Prophylaxis Ordered?: Yes Types of VTE Prophylaxis: TEDS Knee High Location of Applied Device: Bilateral Lower Extremeties
--- NOTE | 2020-06-10 14:02 | PC.NURSE ---
PATIENT ARRIVED ON FLOOR VIA STRETCHER, WHEN [facility] STAFF ATTEMPTED TO TRANSFER PATIENT, HE BECAME VERY COMBATIVE. STARTED THROWING HIS ARMS, HIS EYES BECAME WIDE AND STARTED SCREAMING DON'T SHOOT ME. THIS RN ALONG WITH OTHER [facility] STAFF ATTEMPTED TO REASSURE THE PATIENT THAT WE WERE NOT GOING TO SHOOT HIM, THAT WE ARE HERE TO HELP. PATIENT CONTINUES TO BECOME COMBATIVE SCREAMING DAD, DON'T SHOOT ME! THIS RN PAGED DR. ASHLEY FOR ORDERS.
--- NOTE | 2020-06-10 14:21 | PC.NURSE ---
NEW ORDERS FROM DR. ASHLEY: OKAY TO HOLD FLUIDS FOR NOW. HALDOL 2MG IV 1X ONLY.
--- NOTE | 2020-06-10 14:41 | PC.NURSE ---
attempted to call patients person to notify (sister). no answer at this time
[2020-06-10 14:51] VITALS: BP 119/62; PULSE 88; O2SAT 98
[2020-06-10 14:52] VITALS: BMI 24.7
[2020-06-10 20:25] VITALS: BP 110/72; PULSE 80; RESP 18; TEMP 36.8; O2SAT 100
[2020-06-11 00:20] VITALS: BP 121/72; PULSE 80; RESP 16; TEMP 36.9; O2SAT 97
[2020-06-11 04:00] VITALS: BP 133/67; PULSE 86; RESP 18; TEMP 36.7; O2SAT 99
--- NOTE | 2020-06-11 04:04 | PC.NURSE ---
Pt noted very lethargic this shift. Did awake upon initial assessment, able to answer all questions appropriately. Alert and oriented x4. Pt states he is homeless right now and has not had his daily medications in over a week. No acute changes noted from previous shift. Pt has been appropriate with staff, non-combative thus far. PERRLA. Bilateral hand formation testing operator noted with mild weakness, equally. Cap refill < 3 seconds. Bilateral breath sounds noted clear t/o upon auscultation. Tolerated RA well with no c/o SOA. Hyperactive bowel sounds noted in all 4 quads upon auscultation. Tolerated diet well, ate multiple snacks upon awakening this am at 0340. No edema noted. Fc site noted C/D/I. Adequate urine output noted per FC. Urine noted clear and dark deb in color. Multiple skin lacerations noted to right hand and BLE. Unkept appearance noted. Pt refused shower this evening but states he will take one this am. Staff attempted to provide oral care with toothbrush and toothpaste per pt request. Pt noted too lethargic upon attempting to brush teeth to open his mouth upon command. Was able to provide oral care with mouth swab. VSS. Remains safe with bed alarm functioning. Call light within reach. Seizure precautions in place during shift. Home meds are locked in drawer, needs verified by pharmacy. Will continue to monitor.
[2020-06-11 05:14] VITALS: BMI 25.4
[2020-06-11 07:26] LABS: Chloride 111 mmol/L (98-107); Sodium 140 mmol/L (136-145)
[2020-06-11 07:27] LABS: Potassium 3.4 mmoL/L (3.5-5.1)
[2020-06-11 07:29] LABS: Blood Urea Nitrogen 16 mg/dl (9-20); Creatinine Clearance Estimated 110 mL/min (50-200); Estimated Glomerular Filt Rate 73 ml/min (>60); GFR (African American) 88 ML/MIN (>60)
[2020-06-11 07:30] LABS: Anion Gap 8.4 mEq/L (5-15); Carbon Dioxide 24 mmol/L (22.0-30.0); Glucose 106 mg/dl (74-100)
[2020-06-11 07:40] VITALS: BP 128/83; PULSE 81; RESP 17; TEMP 36.6; O2SAT 100
--- NOTE | 2020-06-11 07:40 | HMH.HP ---
*Admission Date: 06/10/20 *Chief complaint: Altered mental status, polysubstance abuse *History of present illness: 44-year-old white male with history of seizure disorder and psych disorder who presented to the emergency department via EMS yesterday after he was found behind a building in [place]. He was unresponsive, unconscious and obtunded. On presentation to the emergency department was found to have a GCS of 13, work-up included CT scan of head which was unremarkable, trauma survey which was unremarkable and labs which revealed leukocytosis, and elevated creatinine consistent with an acute kidney injury but negative toxicology screening. He was found to have a bottle of lamotrigine and synthetic marijuana in his pockets. He was obtunded but had no evidence of aspiration, issues with airway protection or respiratory insufficiency and was transferred to the floor for IV fluids and further observation of his mental status change. I examined him last night and he was completely unresponsive to verbal stimuli, minimally responsive by withdrawing to tactile stimuli. [facility] History I have reviewed the patient's past medical history: Yes Medical History: Reports:: Seizures Denies:: Diabetes Mellitus Type 1, Diabetes Mellitus Type 2 *Have you ever received a pneumonia vaccine?: No *Have you received a flu vaccine this season?: No Comment:: Psychiatric disease/polysubstance abuse - *Social History Smoking Status: Current every day smoker Tobacco Type: cigarettes # Packs/Day (cigarettes): 1 Alcohol Intake: former Substance Use Type: marijuana *Occupational Status:: other Housing: other Household Members: other *Travel in the last 8 weeks: None Comment: Patient reports that he is homeless and he stays wherever there is a couch. - Psychiatric History Pschychiatric History:: Reports:: Suicide Attempt Family Hx:: No significant family history Review of Systems - Review of Systems Patient is more alert this morning and able to answer questions however most of his answers are I have no idea. Denies cardiac or pulmonary symptoms. Reports that he is hungry, denies recent nausea or vomiting. Meds Home Medications Medication Instructions Recorded Confirmed Type hydrOXYzine HCL [Hydroxyzine HCl] 25 mg PO DAILY PRN 01/19/20 06/10/20 History Albuterol Sulfate [Albuterol 8.5 gm IH Q4HP PRN 06/10/20 06/10/20 History Sulfate Hfa] Aspirin [Aspirin 81mg EC Tab] 81 mg PO DAILY 06/10/20 06/10/20 History Benztropine Mesylate 2 mg PO BID 06/10/20 06/10/20 History Budesonide/Formoterol Fumarate 2 puffs IH BID 06/10/20 06/10/20 History [Symbicort 160-4.5 Mcg Inhaler] Buspirone HCl [Buspar 10mg 15 mg PO BID 06/10/20 06/10/20 History tablet] Famotidine/Ca Carb/Mag Hydrox 1 each PO BIDP PRN 06/10/20 06/10/20 History [Acid Revenue Enforcement Collection Agent Complete Tab Chew] Famotidine/Ca Carb/Mag Hydrox 1 each PO DAILY 06/10/20 06/10/20 History [Pepcid Complete Tablet Chew] Fluoxetine HCl 10 mg PO DAILY 06/10/20 06/10/20 History Ibuprofen [Ibuprofen 200MG Capsule] 200 mg PO Q12 PRN 06/10/20 06/10/20 History Menthol [Icy Hot No Mess] 73 ml TP QIDP PRN 06/10/20 06/10/20 History Naproxen Sodium 220 mg PO Q12 PRN 06/10/20 06/10/20 History Trazodone HCl 50 mg PO HS 06/10/20 06/10/20 History hydrOXYzine HCL [Hydroxyzine HCl] 25 mg PO DAILY 06/10/20 06/10/20 History lamoTRIgine [Lamotrigine] 150 mg PO HS 06/10/20 06/10/20 History lisinopriL [Lisinopril 10mg Tab] 10 mg PO DAILY 06/10/20 06/10/20 History Allergies Allergy/AdvReac Type Severity Reaction Status Date / Time No Known Allergies Allergy Verified 06/10/20 11:57 Exam Vital signs and Labs for Last 24 Hours: Temp Pulse Resp BP Pulse Ox 98.1 F 86 18 133/67 99 06/11/20 04:00 06/11/20 04:00 06/11/20 04:00 06/11/20 04:00 06/11/20 04:00 Laboratory Results - last 24 hr 06/10/20 10:36: WBC 16.4 H, RBC 4.14 L, Hgb 13.8 L, Hct 38.6 L, MCV 93.1, MCH 33.3 H, MCHC 35.7 H,
[2020-06-11 07:49] LABS: Eosinophils # 0.2 K/mm3 (0.0-0.4); Red Cell Distribution Width 12.8 % (11.5-17.5)
[2020-06-11 07:55] LABS: Basophils % 0.4 % (0.1-2.0); Eosinophils % 2.6 % (0.1-12.0); Hematocrit 35.9 % (42.0-52.0); Hemoglobin 12.2 g/dL (14.1-18.0); Lymphocytes # 2.2 K/mm3 (0.7-4.5); Lymphocytes % 30.1 % (10-50); Mean Corpuscular HGB Conc 33.9 g/dL (31.8-35.4); Mean Corpuscular Hemoglobin 32.9 pg (27.0-31.2); Mean Platelet Volume 7.7 fl (7.4-10.4); Monocytes # 0.6 K/mm3 (0.1-1.0); Monocytes % 8.6 % (1.7-9.3); Neutrophils # 4.3 K/mm3 (1.8-7.8); Neutrophils % 58.3 % (37.0-80.0); Platelet Count 231 K/mm3 (142-424); White Blood Count 7.3 K/mm3 (4.8-10.8)
[2020-06-11 08:00] LABS: Calcium 8.2 mg/dl (8.4-10.2)
--- NOTE | 2020-06-11 09:30 | HMH.PHAINT ---
HOME MEDICATIONS RECONCILED FROM RX BOTTLES AND FILL HISTORY.
[2020-06-11 15:05] VITALS: BP 97/72; PULSE 70; RESP 18; TEMP 36.9; O2SAT 97
--- NOTE | 2020-06-11 16:42 | PC.NURSE ---
Addendum entered by Julia Ponce RN 06/11/20 16:50: PER PATIENT'S MOTHER, PATIENT HAS A HISTORY OF [place], HTN AND SEIZURES. Original Note: PATIENT A&O X4, LUNGS CLEAR, PULSES EQUAL. THIS RN ENCOURAGED PATIENT TO TAKE SHOWER, PATIENT AGREED. PATIENT ASKED FOR HIS CLOTHES. THIS RN OFFERED CLOTHES FROM OUT CLOSET. PATIENT AGREED. THIS RN DOCUMENTED A NEW ADMISSION, PATIENT A&O TO ANSWER ALL QUESTIONS. PATIENT UPPER AND LOWER EXTREMITIES CONTINUE TO SHAKE AND PATIENT CAN NOT STAY STILL. THIS RN EDUCATED PATIENT IN REGARDS TO MEDICATION TO HELP HIM RELAX. PATIENT REFUSED. PATIENT'S MOTHER AT BEDSIDE AND WOULD LIKE TO SPEAK TO MD. THIS RN TOOK MOTHER'S PHONE NUMBER AND WILL PASS IT ALONG TO NOC RN AND DR. ASHLEY. NO OTHER CONCERNS AT THIS TIME.
--- NOTE | 2020-06-11 19:05 | PC.NURSE ---
PATIENT CALLED OUT FOR RN. PATIENT COMPLAINED OF PAIN IN THE CHEST AND SOA. THIS RN ASSESSED PATIENT. VITALS: BP: 130/80, HR. 88, O2 100% RA. UPPER EXTREMITIES SHAKING. THIS RN ASKED PATIENT IF HE THOUGHT IT COULD POSSIBLY BE ANXIETY. PATIENT STATED YES, THIS RN ADMINISTERED PRN MEDICATION AND INSTRUCTED PATIENT TO CALL OUT FOR RN IF SYMPTOMS PERSIST.
[2020-06-11 20:00] VITALS: BP 142/82; PULSE 84; RESP 18; TEMP 36.7; O2SAT 99
[2020-06-12 04:00] VITALS: BP 126/70; PULSE 77; RESP 20; TEMP 36.8; O2SAT 98
--- NOTE | 2020-06-12 04:02 | PC.NURSE ---
Pt is alert and oriented x4. Rested well with eyes closed this shift. No acute changes noted from previous shift. PERRLA. Bilateral hand hospice community liaison noted equal and strong. Cap refill < 3 seconds. Bilateral breath sounds noted clear t/o upon auscultation. Tolerated RA well with no c/o SOA. RR noted even and unlabored. Abdomen noted soft and non-tender upon palpation. Active bowel sounds noted in all 4 quads. No edema noted. Refused TEDS. Tolerated independent amb well to and from bathroom. Adequate urine output noted. VSS. Remains safe. Call light within reach. Will continue to monitor.
[2020-06-12 05:10] VITALS: BMI 26.3
[2020-06-12 06:46] LABS: Basophils % 0.5 % (0.1-2.0); Eosinophils # 0.3 K/mm3 (0.0-0.4); Hematocrit 34.3 % (42.0-52.0); Hemoglobin 11.8 g/dL (14.1-18.0); Lymphocytes # 2.6 K/mm3 (0.7-4.5); Lymphocytes % 32.3 % (10-50); Mean Corpuscular HGB Conc 34.4 g/dL (31.8-35.4); Mean Corpuscular Hemoglobin 33.1 pg (27.0-31.2); Mean Corpuscular Volume 96.3 fl (80-94); Mean Platelet Volume 7.8 fl (7.4-10.4); Monocytes # 0.6 K/mm3 (0.1-1.0); Monocytes % 8.2 % (1.7-9.3); Neutrophils # 4.4 K/mm3 (1.8-7.8); Neutrophils % 55.1 % (37.0-80.0); Platelet Count 220 K/mm3 (142-424); Red Blood Count 3.56 M/mm3 (4.60-6.20); Red Cell Distribution Width 13.1 % (11.5-17.5); White Blood Count 7.9 K/mm3 (4.8-10.8)
[2020-06-12 06:48] LABS: Chloride 112 mmol/L (98-107)
[2020-06-12 06:49] LABS: Sodium 141 mmol/L (136-145)
[2020-06-12 06:51] LABS: Blood Urea Nitrogen 11 mg/dl (9-20); Creatinine Clearance Estimated 125 mL/min (50-200); Estimated Glomerular Filt Rate 82 ml/min (>60); GFR (African American) 99 ML/MIN (>60)
[2020-06-12 06:52] LABS: Calcium 8.2 mg/dl (8.4-10.2); Carbon Dioxide 24 mmol/L (22.0-30.0); Creatine Kinase 1350 U/L (55-170); Glucose 93 mg/dl (74-100)
[2020-06-12 08:00] VITALS: BP 153/84; PULSE 70; RESP 17; TEMP 36.6; O2SAT 96
--- NOTE | 2020-06-12 08:09 | HMH.DCSUM ---
General - General Admission date:: 06/10/20 Discharge date: 06/12/20 HPI HPI: 44-year-old white male with history of seizure disorder and psych disorder who presented to the emergency department via EMS yesterday after he was found behind a building in [place]. He was unresponsive, unconscious and obtunded. On presentation to the emergency department was found to have a GCS of 13, work-up included CT scan of head which was unremarkable, trauma survey which was unremarkable and labs which revealed leukocytosis, and elevated creatinine consistent with an acute kidney injury but negative toxicology screening. He was found to have a bottle of lamotrigine and synthetic marijuana in his pockets. He was obtunded but had no evidence of aspiration, issues with airway protection or respiratory insufficiency and was transferred to the floor for IV fluids and further observation of his mental status change. I examined him last night and he was completely unresponsive to verbal stimuli, minimally responsive by withdrawing to tactile stimuli. Hospital Course Hospital Course: Patient was admitted, IV fluids were given. Rhabdomyolysis and acute kidney injury resolved. Patient had no further mental status changes and slowly improved. Drug screens, toxicology screens, etc. were reviewed and were negative. This was probably because of patient synthetic marijuana use that is not picked up on the drug screens. Regardless, this morning patient was doing well, eating well, normal vital signs, essentially normal physical exam except for scratches in a variety of places. He will be discharged home in the care of his girlfriend who has a place for him to stay over the next couple of days. We will research follow-up in the [place] area for his medical care. Objective Vital signs: Temp Pulse Resp BP Pulse Ox 97.9 F 70 17 153/84 H 96 06/12/20 08:00 06/12/20 08:00 06/12/20 08:00 06/12/20 08:00 06/12/20 08:00 no acute distress - *Routine HEENT Exam Head: Present: normocephalic Eye: Present: EOMI, PERRL ENT: Present: mucous membranes moist - *Routine Neck Exam Present: supple - *Routine Respiratory Exam Present: CTA bilaterally - *Routine Cardiovascular Exam Present: RRR - *Routine Abdominal Exam Present: soft, normoactive bowel sounds. Absent: tenderness - *Routine Extremities Exam Absent: cyanosis, clubbing, edema - *Routine Skin Exam Present: warm. Absent: rash Comments: Scratches on legs per nursing pictures - Detailed Eye Exam Eyelids: Bilateral normal inspection Results Labs on day of discharge: Labs from last 24 hours 06/12/20 06/12/20 06/11/20 06:08 06:08 06:39 WBC 7.9 RBC 3.56 L Hgb 11.8 L Hct 34.3 L MCV 96.3 H MCH 33.1 H MCHC 34.4 RDW 13.1 Plt Count 220 MPV 7.8 Neut % (Auto) 55.1 Lymph % (Auto) 32.3 [place] % (Auto) 8.2 Eos % (Auto) 4.0 Baso % (Auto) 0.5 Neut # (Auto) 4.4 Lymph # (Auto) 2.6 [place] # (Auto) 0.6 Eos # (Auto) 0.3 Baso # (Auto) 0.0 Sodium 141 Potassium 4.0 Chloride 112 H Carbon Dioxide 24 Anion Gap 9.0 8.4 BUN 11 D Creatinine 1.00 Estimated Creat Clear 125 110 Estimated GFR 82 73 Est GFR ( Amer) 99 88 D Glucose 93 Calcium 8.2 L Total Creatine Kinase 1350 H* D Preliminary micro results at discharge 06/10/20 11:40 Urine Culture - Preliminary Urine,Catheterized NO GROWTH AFTER 24 HOURS DS: Diagnosis - Discharge Diagnosis (1) Leukocytosis Status: Resolved (2) Acute kidney injury Status: Resolved (3) Altered mental status Status: Resolved (4) Rhabdomyolysis Status: Acute (5) Mood disorder Status: Resolved Discharge Plan - Patient Discharge Instructions ACTIVITY: Continue current activity DIET: continue same diet Additional Instructions: Care management consultation to find a physician in [place]
[2020-06-12 08:15] VITALS: PULSE 70; RESP 17; O2SAT 96
[2020-06-13 15:21] LABS: Lamotrigine (Lamictal) 12.2 ug/mL (2.0-20.0)
[2020-06-13 23:42] LABS: Levetiracetam (Keppra) <1.0 ug/mL (10.0-40.0)
[2020-06-15 21:15] LABS: Amphetamine Positive (.); Amphetamines Positive (.); Methamphetamine Positive (.)
[2020-06-16 04:27] LABS: Amphetamine (GC/MS) >3000 ng/mL (Cutoff=500); Methamphetamine (GC/MS) >3000 ng/mL (Cutoff=500)
== END 2020-06-12 10:25 | disposition home or self-care (01) ==
LOC: ER 10:52 → 2ND 12:40
PROVIDERS: Family Medicine; Admitting Provider Internal Medicine Adolescent Medicine; Emergency Provider Emergency Medicine; Visit Provider Internal Medicine Adolescent Medicine
DX: M62.82 Rhabdomyolysis (principal); N17.9 Acute kidney failure, unspecified; R41.0 Disorientation, unspecified; Z72.0 Tobacco use; G40.909 Epilepsy, unspecified, not intractable, without status epilepticus; Z23 Encounter for immunization; Z59.0 Homelessness
CPT/HCPCS: 36415; 70450; 80048; 80053; 80168; 80177; 80305; 80324; 80329; 81001; 82550; 82803; 85007; 85025; 86328; 87086; 90732; 93005; 96365; 96367; 99285; G0378